=== PATIENT | female | born 1930 | race Caucasian/White ===

== ENCOUNTER 2019-07-17 19:50 | Inpatient (IN) | payer OTHER, MEDICARE ==
[2019-07-17 20:05] VITALS: BMI 19.2
--- NOTE | 2019-07-17 20:28 | PDOC ---
History of Present Illness - General Chief Complaint: Syncope/Near Syncope Stated Complaint: SYNCOPE Time Seen by Provider: 07/17/19 20:14 History Source: Patient Exam Limitations: No Limitations - History of Present Illness Initial Comments: 07/17/19 20:27 Viky Coffman is an 88F with PMH cognitive impairment/dementia, urinary incontinence, anxiety, hyponatremia, presenting with syncope. Patient was otherwise healthy today, when she suddenly passed out while sitting. Per EMS report, patient did not fall or hit head, woke up and felt fine. Patient does not remember event, denies any chest pain, SOB, palpitations , dizziness, vision changes, fever, chills, nausea, vomiting, abdominal pain, urinary symptoms, or any other prodrome or postdrome symptoms. No other cardiac history or prior events. Eating and drinking without issues. Taking all mediations as prescribed. NKDA Past History - Past Medical History Allergies/Adverse Reactions: Allergies Allergy/AdvReac Type Severity Reaction Status Date / Time No Known Allergies Allergy Verified 07/17/19 20:04 Home Medications: Ambulatory Orders Acetaminophen 325 mg PO Q8H PRN MDD 3gm/24hrs 07/18/19 Aripiprazole 2 mg PO HS 07/18/19 Ascorbic Acid [Vitamin C] 1,000 mg PO DAILY 07/18/19 Donepezil HCl 10 mg PO DAILY 07/18/19 Memantine HCl [Namenda Xr] 28 mg PO DAILY 07/18/19 Mirabegron [Myrbetriq] 25 mg PO DAILY 07/18/19 Sodium Chloride Tablet - 1 gm PO DAILY 07/18/19 Vitamin E - 400 unit PO DAILY 07/18/19 - Psycho Social/Smoking Cessation Hx Smoking History: Never smoked Hx Alcohol Use: No Drug/Substance Use Hx: No Review of Systems - Review of Systems Able to Perform ROS?: Yes Constitutional: No: Symptoms Reported HEENTM: No: Blurred Vision, Recent change in vision, Throat Pain, Difficulty Swallowing Respiratory: No: Cough, Shortness of Breath, Wheezing, Productive cough Cardiac (ROS): Yes: Syncope. No: Chest Pain, Irregular Heart Rate, Lightheadedness, Palpitations ABD/GI: No: Constipated, Diarrhea, Nausea, Poor Appetite, Poor Fluid Intake, Vomiting : No: Burning, Dysuria, Discharge, Frequency, Flank Pain, Hematuria, Incontinence Musculoskeletal: No: Symptoms Reported Integumentary: No: Symptoms Reported Neurological: No: Symptoms reported Endocrine: No: Symptoms Reported Hematologic/Lymphatic: No: Symptoms Reported All Other Systems: Reviewed and Negative *Physical Exam - Vital Signs Last Vital Signs Temp Pulse Resp BP Pulse Ox 98.1 F 66 18 107/56 L 97 07/17/19 19:55 07/17/19 19:55 07/17/19 19:55 07/17/19 19:55 07/17/19 19:55 - Physical Exam General Appearance: Yes: Nourished, Appropriately Dressed. No: Apparent Distress HEENT: positive: EOMI, JAYLAN, Normal Voice, Symmetrical, Pharynx Normal. negative: Scleral Icterus (R), Scleral Icterus (L), Pharyngeal Erythema, Tonsillar Exudate, Tonsillar Erythema Neck: positive: Trachea midline, Normal Thyroid, Supple. negative: Tender, Rigid, Lymphadenopathy (R), Lymphadenopathy (L) Respiratory/Chest: positive: Lungs Clear, Normal Breath Sounds. negative: Chest Tender, Respiratory Distress, Accessory Muscle Use, Crackles, Rales, Rhonchi, Stridor, Wheezing Cardiovascular: positive: Regular Rhythm, Regular Rate. negative: Murmur Gastrointestinal/Abdominal: positive: Normal Bowel Sounds, Flat, Soft. negative : Tender, Organomegaly, Distended, Guarding, Rebound Musculoskeletal: positive: Normal Inspection. negative: CVA Tenderness, Vertebral Tenderness Extremity: positive: Normal Capillary Refill, Normal Inspection, Normal Range of Motion, Pelvis Stable. negative: Tender, Pedal Edema, Swelling Integumentary: positive: Normal Color, Dry, Warm Neurologic: positive: technical assistant II-XII NML intact, Alert, Normal Mood/Affect, Normal Response, Motor Strength 5/5, Finger to Nose (normal). negative: Fully Oriented (Oriented to self, time, date, but says Tracy when asked where she is, asked twice with same answer.), Numbness, Sensory Deficit ED Treatment Course - LABORATORY CBC & Chemistry Diagram: 07/17/19 21:15 07/17/19 21:15 Medical Decision Making - Medical Decision Making 07/17/19 21:26 Patient presents with one episode of syncope without associated chest pain, SOB , palpitations, or any prodromal sx. Patient says she feels totally fine in ED. No report of head trauma but patient cannot recall and has dementia. VS stable, unremarkable physical exam, no neuro deficits. At baseline mental status per daughter at bedside, has mild dementia but is A/Ox2. Will evaluate for infectious, hematologic, cardiac, pulmonary, causes of syncope. - CMP/CBC for eval anemia, lytes, infection - CP/ECG/CXR for eval cardiopulmonary disease - CT head/s-cpine for eval fall - orthostatic VS for eval positional hypotension ECG shows NSR with HR 68, QRS 86, QTc 440 without RAS/D, TWI in III. Labs notable: - CMP WNL - CBC WNL - CP WNL CXR grossly normal on prelim read. 07/17/19 23:38 Contact information Giuliana (daughter): [phone] Campos (son-in-law): [phone] 07/18/19 00:[address] head no pathology CT cervical spine no pathology Will admit for tele/obs for syncope, cardiac evaluation. 4 hour trop ordered. 07/18/19 02:55 Discussed case to admitting team, good for tele/obs admission under Dr. Mcdonough. Discharge - Discharge Information Problems reviewed: Yes Clinical Impression/Diagnosis: Syncope Qualifiers: Syncope type: unspecified Qualified Code(s): R55 - Syncope and collapse Condition: Fair - Admission Yes - Follow up/Referral - Patient Discharge Instructions - Post Discharge Activity
--- NOTE | 2019-07-17 20:46 | PDOC ---
Attending Attestation - Resident Resident Name: César Calzada - ED Attending Attestation I have performed the following: I have examined & evaluated the patient, The case was reviewed & discussed with the resident, I agree w/resident's findings & plan - HPI HPI: 07/18/19 00:43 see resident hpi - Physicial Exam PE: 07/18/19 00:44 see resident exam - Medical Decision Making 07/18/19 00:44 88-year-old female status post syncopal episode EKG is unremarkable Troponin within normal limits CT scan of the head and cervical spine show no acute abnormality We will admit to medical service for observation due to age
[2019-07-17 21:34] LABS: BASO % 0.9 % (0-2.0); EOS % 2.9 % (0-4.5); HEMATOCRIT 39.2 % (32.4-45.2); LYMPH % 8.2 % (8-40); MCH 32.6 pg (25.7-33.7); MCHC 33.1 g/dl (32.0-36.0); MEAN CELL VOLUME 98.6 fl (80-96); MEAN PLT VOLUME 8.7 fl (7.5-11.1); MONO % 7.3 % (3.8-10.2); NEUT % 80.7 % (42.8-82.8); PLATELET COUNT 203 K/MM3 (134-434); RBC 3.97 M/mm3 (3.60-5.2); RDW 14.2 % (11.6-15.6); WHITE BLOOD COUNT 8.1 K/mm3 (4.0-10.0)
[2019-07-17 21:59] LABS: INR 0.97 (0.83-1.09); PROTHROMBIN TIME (PATIENT) 11.5 SEC (9.7-13.0)
[2019-07-17 22:02] LABS: ACTIVATED PTT 29.5 SECONDS (25.2-36.5)
[2019-07-17 22:07] LABS: ALBUMIN 3.4 g/dl (3.4-5.0); BILIRUBIN,TOTAL 0.4 mg/dL (0.2-1); BLOOD UREA NITROGEN 31.8 mg/dL (7-18); CALCIUM 9.1 mg/dL (8.5-10.1); CREATININE 1.2 mg/dL (0.55-1.3); POTASSIUM 4.6 mmol/L (3.5-5.1); TOT PROT 6.6 g/dl (6.4-8.2)
--- NOTE | 2019-07-18 02:11 | PN ---
Teaching Attending Note Name of Resident: Filomena Soni ATTENDING PHYSICIAN STATEMENT I saw and evaluated the patient. I reviewed the resident's note and discussed the case with the resident. I agree with the resident's findings and plan as documented. SUBJECTIVE: Patient is an 88 year old woman with PMH of Dementia/Cognitive, Urinary incontinence, Anxiety and Hyponatremia, presenting with syncope. Patient was otherwise healthy today, when she suddenly passed out while sitting. Per EMS report, patient did not fall or hit head, woke up and felt fine. Patient does not remember event. Patient denies chest pain, SOB, palpitations, dizziness, vision changes, fever, chills, nausea, vomiting, abdominal pain, urinary symptoms, or any other prodrome or postdrome symptoms. No other cardiac history or prior events. Eating and drinking without issues. Taking all mediations as prescribed. Denies alcohol, tobacco or illicit drug use. No sick contacts or recent travels. OBJECTIVE: Alert and not orthostatic Vital Signs Period Temp Pulse Resp BP Sys/Vázquez Pulse Ox Last 24 Hr 98.1 F 66 18 107/56 97 HEENT: No Jaundice, eye redness or discharge, PERRLA, EOMI. Normocephalic, atraumatic. External ears are normal and hearing is grossly intact. No nasal discharge. Neck: Supple, nontender. No palpable adenopathy or thyromegaly. No JVD Chest: Good effort. Clear to auscultation and percussion. Heart: Regular. No S3, rub or murmur Abdomen: Not distended, soft, nontender and no HSM. No rebound or guarding. Normal bowel sounds. Ext: Peripheral pulses intact. No leg edema. Skin: Warm and dry. No petechiae, rash or ecchymosis. Neuro: Alert. Oriented to person and time. CN 2-12 grossly intact. Sensation grossly intact in all four extremities and DTR are symmetric. Psych: Appropriate mood and affect. Good insight. Abnormal Lab Results 07/17/19 07/17/19 21:15 21:15 MCV 98.6 H Anion Gap 6 L BUN 31.8 H ASSESSMENT AND PLAN: 1. Syncope - Etiology unclear. Elevated BUN suggests dehydration may be a contributing factor. Also drug side effect may be a contributing factor - she is on Namenda, Aripiprazole, Donepezil and Mirabegron - all of which will be stopped for now. Will also stop Vitamin C and Vitamin E. No acute abnormality on head or C-spine CT. CXR shows bilateral increased interstitial markings. Will hydrate her gently with IV NS, get urinalysis, urine toxicology, monitor on telemetry, get ECHO, carotid doppler and brain MRI. Implement fall precautions and consult PT and Neurology. Will continue comprehensive care for all of patients comorbid conditions. 2. DVT prophylaxis - Lovenox 40 mg SQ q 24 hours. 3. Advance directives - Full code
--- NOTE | 2019-07-18 04:55 | HP ---
CHIEF COMPLAINT: Syncopal event PCP: [facility], Dr. Croft HISTORY OF PRESENT ILLNESS: 88F PMH dementia, urinary incontinence, anxiety, hyponatremia who presents today with Syncope. Patient does not recall the events of today. Spoke with her half-way facility who only had nursing report from hand off in the evening. Patient was noted to be at afternoon activity today and a staff member noticed she had loss of conciousness. No note was made of if she was initially standing but patient was found in a chair. She had no witnessed fall, no trauma. No timeframe for how long she was out was given. Patient did not have any urinary or fecal incontinence, nor any seizure like movement. Currently she states that she is in [place], [place], and [place]. She denies any chest pain, shortness of breath, headache, dizziness, lightheadedness, abdominal pain, nausea, vomiting, diarrhea, dysuria or hematuria. ER course was notable for: (1) Head CT was completed: Negative (2) CT C-Spine was negative (3) Labs showed BUN of 31.8 Recent Travel: None PAST MEDICAL HISTORY: dementia, urinary incontinence, anxiety, hyponatremia FAMILY MEDICAL HISTORY: Denies PAST SURGICAL HISTORY: denies Social History: Smoking:Denies Alcohol:denies Drugs: Denies Allergies No Known Allergies Allergy (Verified 07/17/19 20:04) HOME MEDICATIONS: Home Medications Medication Instructions Recorded Acetaminophen 325 mg PO Q8H PRN MDD 3gm/24hrs 07/18/19 Aripiprazole 2 mg PO HS 07/18/19 Ascorbic Acid [Vitamin C] 1,000 mg PO DAILY 07/18/19 Donepezil HCl 10 mg PO DAILY 07/18/19 Memantine HCl [Namenda Xr] 28 mg PO DAILY 07/18/19 Mirabegron [Myrbetriq] 25 mg PO DAILY 07/18/19 Sodium Chloride Tablet - 1 gm PO DAILY 07/18/19 Vitamin E - 400 unit PO DAILY 07/18/19 REVIEW OF SYSTEMS CONSTITUTIONAL: Absent: fever, chills, diaphoresis, generalized weakness, malaise, loss of appetite, weight change HEENT: Absent: rhinorrhea, nasal congestion, throat pain, throat swelling, difficulty swallowing, mouth swelling, ear pain, eye pain, visual changes CARDIOVASCULAR: Absent: chest pain, syncope, palpitations, irregular heart rate, lightheadedness , peripheral edema RESPIRATORY: Absent: cough, shortness of breath, dyspnea with exertion, orthopnea, wheezing, stridor, hemoptysis GASTROINTESTINAL: Absent: abdominal pain, abdominal distension, nausea, vomiting, diarrhea, constipation, melena, hematochezia GENITOURINARY: Absent: dysuria, frequency, urgency, hesitancy, hematuria, flank pain, genital pain MUSCULOSKELETAL: Absent: myalgia, arthralgia, joint swelling, back pain, neck pain SKIN: Absent: rash, itching, pallor HEMATOLOGIC/IMMUNOLOGIC: Absent: easy bleeding, easy bruising, lymphadenopathy, frequent infections ENDOCRINE: Absent: unexplained weight gain, unexplained weight loss, heat intolerance, cold intolerance NEUROLOGIC: Absent: headache, focal weakness or paresthesias, dizziness, unsteady gait, seizure, mental status changes, bladder or bowel incontinence PSYCHIATRIC: Absent: anxiety, depression, suicidal or homicidal ideation, hallucinations. PHYSICAL EXAMINATION Vital Signs - 24 hr 07/17/19 19:55 Temperature 98.1 F Pulse Rate 66 Respiratory 18 Rate Blood Pressure 107/56 L O2 Sat by Pulse 97 Oximetry (%) GENERAL: Awake, alert, oriented to self and time. Not oriented to place. Resting comfortably. HEAD: Normal with no signs of trauma. EYES: Pupils equal, round and reactive to light, extraocular movements intact, sclera anicteric, conjunctiva clear. No lid lag. EARS, NOSE, THROAT: Ears normal, nares patent, oropharynx clear without exudates. Dry oropharynx. NECK: Normal range of motion, supple without lymphadenopathy, JVD, or masses. LUNGS: Breath sounds equal, clear to auscultation bilaterally. No wheezes, and no crackles. No accessory muscle use. HEART: Regular rate and rhythm, normal S1 and S2 without murmur, rub or gallop. ABDOMEN: Soft, nontender, not distended, normoactive bowel sounds, no guarding, no rebound, no masses. No hepatomegaly or splenomegaly. MUSCULOSKELETAL: Normal range of motion at all joints. No bony deformities or tenderness. No CVA tenderness. UPPER EXTREMITIES: 2+ pulses, warm, well-perfused. No cyanosis. No clubbing. No peripheral edema. LOWER EXTREMITIES: 2+ pulses, warm, well-perfused. No calf tenderness. No peripheral edema. NEUROLOGICAL: Cranial nerves II-XII intact. Normal speech. PSYCHIATRIC: Cooperative. Good eye contact. Appropriate mood and affect. SKIN: Warm, dry, normal turgor, no rashes or lesions noted, normal capillary refill. Laboratory Results - last 24 hr 07/17/19 07/17/19 07/17/19 21:15 21:15 21:15 WBC 8.1 RBC 3.97 Hgb 13.0 Hct 39.2 MCV 98.6 H MCH 32.6 MCHC 33.1 RDW 14.2 Plt Count 203 MPV 8.7 Absolute Neuts (auto) 6.6 Neutrophils % 80.7 Lymphocytes % 8.2 Monocytes % 7.3 Eosinophils % 2.9 Basophils % 0.9 Nucleated RBC % 0 PT with INR INR PTT (Actin FS) Sodium 138 Potassium 4.6 Chloride 101 Carbon Dioxide 31 Anion Gap 6 L BUN 31.8 H Creatinine 1.2 Est GFR (CKD-EPI)AfAm 46.73 Est GFR (CKD-EPI)NonAf 40.32 Random Glucose 92 Calcium 9.1 Total Bilirubin 0.4 AST 19 ALT 17 Alkaline Phosphatase 97 Creatine Kinase 67 Troponin I < 0.02 Total Protein 6.6 Albumin 3.4 07/17/19 21:15 WBC RBC Hgb Hct MCV MCH MCHC RDW Plt Count MPV Absolute Neuts (auto) Neutrophils % Lymphocytes % Monocytes % Eosinophils % Basophils % Nucleated RBC % PT with INR 11.50 INR 0.97 PTT (Actin FS) 29.5 Sodium Potassium Chloride Carbon Dioxide Anion Gap BUN Creatinine Est GFR (CKD-EPI)AfAm Est GFR (CKD-EPI)NonAf Random Glucose Calcium Total Bilirubin AST ALT Alkaline Phosphatase Creatine Kinase Troponin I Total Protein Albumin ASSESSMENT/PLAN: 88F PMH dementia, urinary incontinence, anxiety, hyponatremia who presents today with Syncope. 1) Syncope - Unknown eitology - Call Nursing facility in AM, and speak with day staff that witnessed events - Head CT negative - Echo ordered to rule out cardiogenic cause. - Orthostatic vitals done: BP 136/54 HR 74 while supine. BP: 120/61 with HR 96 standing. Negative. - NS @ 42 - Holding home medications of donepezil, aripiprazole, mirabegron, and memantine as side effects can lead to orthostatic hypotension which can be a precipitating factor syncopal episode - U/A ordered, U tox ordered - Continous cardiac monitoring - Echo - Brain MRI - Carotid doppler 2) Elevated BUN - Likely 2/2 to dehydration - Encourage oral hydration and gentle IV hydration - NS @ 42 ml/hr DVT: Heparin SQ TID F: NS @ 42 ml/hr E: Monitor BMP N: Regular diet Dispo: Tele observation Visit type - Emergency Visit Emergency Visit: Yes ED Registration Date: 07/17/19 Care time: The patient presented to the Emergency Department on the above date and was hospitalized for further evaluation of their emergent condition. - New Patient This patient is new to me today: Yes Date on this admission: 07/18/19 - Critical Care Critical Care patient: No ATTENDING PHYSICIAN STATEMENT I saw and evaluated the patient. I reviewed the resident's note and discussed the case with the resident. I agree with the resident's findings and plan as documented. SUBJECTIVE: OBJECTIVE: ASSESSMENT AND PLAN:
[2019-07-18] MEDS: SODIUM CHLORIDE 1,000 ML IV SCH (05:00)
[2019-07-18] MEDS ORDERED: HEPARIN NA (PORCINE) 5,000 UNITS/ML 1ML VIAL ONE (05:45)
[2019-07-18] MEDS ORDERED: HEPARIN NA (PORCINE) 5,000 UNITS/ML 1ML VIAL SQ SCH (06:00)
[2019-07-18 06:05] LABS: BASO % 1.2 % (0-2.0); HEMATOCRIT 33.1 % (32.4-45.2); HEMOGLOBIN 11.3 GM/dL (10.7-15.3); LYMPH % 18.4 % (8-40); MCH 33.1 pg (25.7-33.7); MCHC 34.2 g/dl (32.0-36.0); MEAN PLT VOLUME 8.6 fl (7.5-11.1); MONO % 10.3 % (3.8-10.2); NEUT % 65.1 % (42.8-82.8); PLATELET COUNT 176 K/MM3 (134-434); RBC 3.41 M/mm3 (3.60-5.2); WHITE BLOOD COUNT 4.8 K/mm3 (4.0-10.0)
[2019-07-18 06:44] LABS: ALBUMIN 2.9 g/dl (3.4-5.0); BILIRUBIN,TOTAL 0.6 mg/dL (0.2-1); BLOOD UREA NITROGEN 26.9 mg/dL (7-18); CALCIUM 8.7 mg/dL (8.5-10.1); CREATININE 0.8 mg/dL (0.55-1.3); POTASSIUM 3.9 mmol/L (3.5-5.1); TOT PROT 5.5 g/dl (6.4-8.2)
[2019-07-18] MEDS ORDERED: ENOXAPARIN NA (PORCINE) 40 MG/0.4 ML DISP.SYRIN SQ SCH (10:00)
--- NOTE | 2019-07-18 10:33 | EKG ---
Test Reason : Blood Pressure : / mmHG Vent. Rate : 068 BPM Atrial Rate : 068 BPM P-R Int : 156 ms QRS Dur : 086 ms QT Int : 414 ms P-R-T Axes : 050 -22 003 degrees QTc Int : 440 ms NORMAL SINUS RHYTHM NORMAL ECG NO PREVIOUS ECGS AVAILABLE Confirmed by Juanito Fulton MD ([id number]) on 07/18/2019 10:33:19 AM Referred By: Confirmed By:Juanito Fulton MD
--- NOTE | 2019-07-18 13:06 | ECHO ---
Version: 1 Name: JOAVNNA MANN Exam: Adult Echocardiogram Study Date: 07/18/2019, 9:17 AM Age: 88 Years MMode/2D Measurements & Calculations IVSd: 1.27 cm LVIDs: 2.23 cm LVIDd: 3.7 cm LVPWd: 1.04 cm ACS: 1.70 cm Ao root diam: 3.0 cm LVOT diam: 1.99 cm LA dimension: 2.9 cm Doppler Measurements & Calculations MV E max viktor: 88.8 cm/sec Med E/e': 14.2 MV A max viktor: 114.5 cm/sec Med Peak E' Viktor: 6.2 cm/sec MV E/A: 0.78 Lat E/e': 15.4 Lat Peak E' Viktor: 5.8 cm/sec Ao max P.5 mmHg ERMA(I,D): 2.7 cm Ao mean P.7 mmHg LV V1 mean: 70.5 cm/sec Ao V2 max: 127.6 cm/sec LV V1 mean P.34 mmHg AI P1/2t: 706.3 msec PI end-d viktor: 65.2 cm/sec TR max viktor: 250.7 cm/sec TR max P.2 mmHg Left Ventricle The left ventricle is normal in size. There is mild concentric left ventricular hypertrophy. Left ve ntricular systolic function is normal. Ejection Fraction = 70%. The transmitral spectral Doppler flow pattern is suggestive of impaired LV relaxation. Right Ventricle The right ventricle is moderately dilated. The right ventricular systolic function is normal. Atria The left atrial size is normal. The right atrium is moderately dilated. Mitral Valve The mitral valve is grossly normal. There is mild mitral regurgitation. Tricuspid Valve The tricuspid valve is not well visualized, but is grossly normal. There is mild to moderate tricusp id regurgitation. Aortic Valve The aortic valve is normal in structure and function. Pulmonic Valve The pulmonic valve is not well visualized. Great Vessels The aortic root is normal size. Normal aortic arch, descending and ascending aorta. Pericardium/Pleura There is no pericardial effusion. Tech Comments TDS. Very thin. Suboptimal apical views. Summary Statements The left ventricle is normal in size. There is mild concentric left ventricular hypertrophy. Left ventricular systolic function is normal. Ejection Fraction = 70%. The transmitral spectral Doppler flow pattern is suggestive of impaired LV relaxation. The right ventricle is moderately dilated. The right ventricular systolic function is normal. The left atrial size is normal. The right atrium is moderately dilated. The mitral valve is grossly normal. There is mild mitral regurgitation. The tricuspid valve is not well visualized, but is grossly normal. There is mild to moderate tricuspid regurgitation. The aortic valve is normal in structure and function. The pulmonic valve is not well visualized. The aortic root is normal size. Normal aortic arch, descending and ascending aorta There is no pericardial effusion. Castro Jara 07/18/2019, 1:05 PM Ordering Physician: Srinivas José Referring Physician: SRINIVAS JOSÉ Performed By: Shefali Bernstein
--- NOTE | 2019-07-18 13:31 | CON.NEURO ---
Consult Consult Specialty:: Carol Ann Referred by:: Neurology - History of Present Illness History of Present Illness: 88 With multiple medical problem including being a prison, osteoarthritis , dementia, hypertension patient was at her usual status of health until yesterday she had a syncopal event patient herself is not able to give me any history patient was seen in the emergency room. Patient had a CAT scan of the head which revealed evidence of mild atrophy with mild ischemic lordosis with no evidence of acute pathology. - History Source History Provided By: Medical Record - Alcohol/Substance Use Hx Alcohol Use: No - Smoking History Smoking history: Never smoked Home Medications - Allergies Allergies/Adverse Reactions: Allergies Allergy/AdvReac Type Severity Reaction Status Date / Time No Known Allergies Allergy Verified 07/17/19 20:04 - Home Medications Home Medications: Ambulatory Orders Acetaminophen 325 mg PO Q8H PRN MDD 3gm/24hrs 07/18/19 Aripiprazole 2 mg PO HS 07/18/19 Ascorbic Acid [Vitamin C] 1,000 mg PO DAILY 07/18/19 Donepezil HCl 10 mg PO DAILY 07/18/19 Memantine HCl [Namenda Xr] 28 mg PO DAILY 07/18/19 Mirabegron [Myrbetriq] 25 mg PO DAILY 07/18/19 Sodium Chloride Tablet - 1 gm PO DAILY 07/18/19 Vitamin E - 400 unit PO DAILY 07/18/19 Family Medical History Family History: Unable to Obtain Review of Systems - Review of Systems Neurological: reports: Dizziness, Headache, Incoordination, Parasthesia Physical Exam-Neuro Vital Signs: Vital Signs Temperature 98.6 F 07/18/19 13:21 Pulse Rate 82 07/18/19 13:21 Respiratory Rate 19 07/18/19 13:21 Blood Pressure 119/59 L 07/18/19 13:21 O2 Sat by Pulse Oximetry (%) 98 07/18/19 13:21 Constitutional: Yes: Well Nourished Neck: Yes: WNL Cardiovascular: Yes: WNL Labs: CBC, BMP 07/18/19 05:40 07/18/19 05:40 INR, PTT INR 0.97 (0.83-1.09) 07/17/19 21:15 - Neuro Exam Level Of Consciousness: Yes: Oriented to Person, Oriented to Place, Oriented to Time Eyes: Yes: PERRLA Speech: WNL Dominant Hand: Right Cranial Nerves II-XII Intact: Yes Gag: Present Response to light touch: Abnormal Response to pain prick: Abnormal Response to temperature: Abnormal Motor Strength: 3/5: Left Arm, Right Arm, Left Leg, Right Leg Gait: Deferred Imaging - Results Cat Scan: Image Reviewed Problem List - Problems (1) Syncope Code(s): R55 - SYNCOPE AND COLLAPSE Qualifiers: Syncope type: unspecified Qualified Code(s): R55 - Syncope and collapse Assessment/Plan 1. Admitted to telemetry. 2. Holter monitor. 3. Stop the Aricept. 4. Check orthostasis every shift. 5. Fall precautions. 6. Blood work for dementia including B12, RPR, thyroid function Emad Amandeep Maharaj M.D., MSc [facility] [address] [place] [id number] Office
[2019-07-18] MEDS: HEPARIN NA (PORCINE) 5,000 UNITS/ML 1ML VIAL SQ SCH ×2 (15:25→21:43)
[2019-07-18 21:29] LABS: EPI CELLS 2.7 /HPF (0-5/HPF); HYALINE CASTS 2 /lpf (0-8); URINE APPEARANCE CLOUDY; URINE BACTERIA 62.1 /hpf (NEGATIVE); URINE BILIRUBIN NEGATIVE (NEGATIVE); URINE COLOR YELLOW; URINE GLUCOSE (UA) NEGATIVE (NEGATIVE); URINE KETONE NEGATIVE (NEGATIVE); URINE LEUK ESTERASE 3+ (NEGATIVE); URINE NITRITE NEGATIVE (NEGATIVE); URINE PROTEIN NEGATIVE (NEGATIVE); URINE RBC 6 /hpf (0-4); URINE UROBILINOGEN 0.2 mg/dL (0.2-1.0); URINE WBC 44 /hpf (0-5)
[2019-07-19] MEDS: HEPARIN NA (PORCINE) 5,000 UNITS/ML 1ML VIAL SQ SCH (05:42)
[2019-07-19] MEDS: SODIUM CHLORIDE 1,000 ML IV SCH (05:42)
[2019-07-19] MEDS ORDERED: LORazepam 2 MG/ML SDV VIAL IVPUSH ONE (07:45)
--- NOTE | 2019-07-19 08:19 | PN ---
Progress Note, Physician Chief Complaint: Patient seen and examined at the bedside in ICU, appears to be very anxious this morning. History of Present Illness: This 88 yr old w/f with PMH of cognitive dysfunction/dementia, urinary incontinence, hyponatremia, and anxiety admitted via ER with an acute episode of syncope. While sitting in chair, patient passed out. She doesn't remember the event. Denies to chest pain, dizziness, shortness of breath, headache, or abdominal pain. - Current Medication List Current Medications: Active Medications Heparin Sodium (Porcine) (Heparin -) 5,000 unit SQ TID [facility] Last Admin: 07/19/19 05:42 Dose: Not Given Dextrose/Sodium Chloride (D5-1/2ns -) 1,000 mls @ 42 mls/hr IV ASDIR [facility] - Objective Vital Signs: Vital Signs Temperature 97.8 F 07/19/19 05:00 Pulse Rate 61 07/19/19 07:10 Respiratory Rate 20 07/19/19 07:10 Blood Pressure 179/69 H 07/19/19 07:10 O2 Sat by Pulse Oximetry (%) 97 07/19/19 00:58 Constitutional: Yes: Well Nourished, Anxious, Mild Distress Eyes: Yes: Conjunctiva Clear, EOM Intact HENT: Yes: Atraumatic, Normocephalic Neck: Yes: Supple, Trachea Midline Cardiovascular: Yes: Regular Rate and Rhythm Respiratory: Yes: Regular, CTA Bilaterally Gastrointestinal: Yes: Normal Bowel Sounds, Soft ...Rectal Exam: Yes: Deferred Genitourinary: Yes: Incontinence Breast(s): Yes: WNL Musculoskeletal: Yes: Muscle Weakness Edema: No Peripheral Pulses WNL: Yes Peripheral Pulses: Left Radial: 2+, Right Radial: 2+ Integumentary: Yes: WNL Neurological: Yes: Alert, Unsteady Gait, Weakness ...Motor Strength: LLE (muscle weakness), RLE (muscle weakness) Psychiatric: Yes: Alert, Agitated Labs: CBC, BMP 07/18/19 05:40 07/18/19 05:40 INR, PTT INR 0.97 (0.83-1.09) 07/17/19 21:15 - ....Imaging Other: Report Reviewed (Lab data reviewed) Problem List - Problems (1) Tricuspid regurgitation Code(s): I07.1 - RHEUMATIC TRICUSPID INSUFFICIENCY (2) Atrial dilatation, right Code(s): I51.7 - CARDIOMEGALY (3) Right ventricular dilation Code(s): I51.7 - CARDIOMEGALY (4) Syncope Code(s): R55 - SYNCOPE AND COLLAPSE Qualifiers: Syncope type: unspecified Qualified Code(s): R55 - Syncope and collapse (5) Hypertension Code(s): I10 - ESSENTIAL (PRIMARY) HYPERTENSION (6) Anxiety Code(s): F41.9 - ANXIETY DISORDER, UNSPECIFIED Assessment/Plan Assessment/plan: acute syncope, acute anxiety, acute uncontrolled hypertension, acute generalized muscle weakness, acute unsteadiness on feet; IV fluids, IV Lorazepam, oral Diovan, DVT prophylaxis, physical therapy, fall precautions.
[2019-07-19] MEDS ORDERED: VALSARTAN 40 MG TABLET (FP) PO ONE (09:00)
[2019-07-19] MEDS: DEXTROSE 5%-0.45% SALINE 1,000 ML IV SCH (09:28)
[2019-07-19] MEDS: ENOXAPARIN NA (PORCINE) 40 MG/0.4 ML DISP.SYRIN SQ SCH (09:31)
[2019-07-19] MEDS ORDERED: DONEPEZIL HCL 10 MG TABLET (FP) PO SCH (10:00)
[2019-07-19] MEDS ORDERED: MEMANTINE HCL 10 MG TABLET (FP) PO SCH (10:00)
[2019-07-19] MEDS: OXYBUTYNIN CHLORIDE 5 MG TABLET PO SCH (10:07)
[2019-07-19] MEDS: ARIPiprazole 2 MG TABLET PO SCH (21:05)
--- NOTE | 2019-07-20 09:06 | PN ---
Progress Note, Physician Chief Complaint: Patient seen and examined at the bedside in ICU, no acute events from last night, no labored breathing, no chest pain. History of Present Illness: This 88 yr old w/f with PMH of cognitive dysfunction/dementia, hyponatremia, anxiety, and urinary incontinence admitted via ER with an acute bout of syncope and collapse, and an acute concussion with LOC. - Current Medication List Current Medications: Active Medications Aripiprazole (Abilify) 2 mg PO DAILY@2100 [facility] Last Admin: 07/19/19 21:05 Dose: 2 mg Documented by: Enoxaparin Sodium (Lovenox -) 40 mg SQ DAILY [facility] Last Admin: 07/19/19 09:31 Dose: 40 mg Documented by: Dextrose/Sodium Chloride (D5-1/2ns -) 1,000 mls @ 42 mls/hr IV ASDIR [facility] Last Admin: 07/19/19 09:28 Dose: 42 mls/hr Documented by: Oxybutynin Chloride (Ditropan -) 5 mg PO DAILY [facility] Last Admin: 07/19/19 10:07 Dose: 5 mg Documented by: - Objective Vital Signs: Vital Signs Temperature 98.2 F 07/20/19 01:00 Pulse Rate 71 07/20/19 01:00 Respiratory Rate 20 07/20/19 01:00 Blood Pressure 148/62 07/20/19 01:00 O2 Sat by Pulse Oximetry (%) 97 07/19/19 22:00 Constitutional: Yes: Well Nourished, No Distress, Calm Eyes: Yes: Conjunctiva Clear, EOM Intact HENT: Yes: Atraumatic, Normocephalic Neck: Yes: Supple, Trachea Midline Cardiovascular: Yes: Regular Rate and Rhythm Respiratory: Yes: Regular, CTA Bilaterally Gastrointestinal: Yes: Normal Bowel Sounds, Soft ...Rectal Exam: Yes: Deferred Genitourinary: Yes: Incontinence Breast(s): Yes: WNL Musculoskeletal: Yes: Muscle Weakness Extremities: Yes: Other (generalized muscle weakness) Edema: No Peripheral Pulses WNL: Yes Peripheral Pulses: Left Radial: 2+, Right Radial: 2+ Integumentary: Yes: WNL Neurological: Yes: Unsteady Gait, Weakness ...Motor Strength: LLE (muscle weakness), RLE (muscle weakness) Psychiatric: Yes: Alert, Oriented Labs: CBC, BMP 07/18/19 05:40 07/18/19 05:40 INR, PTT INR 0.97 (0.83-1.09) 07/17/19 21:15 Problem List - Problems (1) Tricuspid regurgitation Code(s): I07.1 - RHEUMATIC TRICUSPID INSUFFICIENCY (2) Atrial dilatation, right Code(s): I51.7 - CARDIOMEGALY (3) Right ventricular dilation Code(s): I51.7 - CARDIOMEGALY (4) Syncope Code(s): R55 - SYNCOPE AND COLLAPSE Qualifiers: Syncope type: unspecified Qualified Code(s): R55 - Syncope and collapse (5) Hypertension Code(s): I10 - ESSENTIAL (PRIMARY) HYPERTENSION (6) Anxiety Code(s): F41.9 - ANXIETY DISORDER, UNSPECIFIED Assessment/Plan Assessment/plan: acute syncope and collapse, acute concussion with LOC, acute anxiety, acute generalized muscle weakness, acute unsteadiness on feet, mild to moderate TR, moderately dilated RV and RA; IV fluids, DVT prophylaxis, physical therapy, fall precautions, consult to Cardiology pending.
[2019-07-20] MEDS: DEXTROSE 5%-0.45% SALINE 1,000 ML IV SCH (09:07)
[2019-07-20] MEDS: ENOXAPARIN NA (PORCINE) 40 MG/0.4 ML DISP.SYRIN SQ SCH (09:11)
[2019-07-20] MEDS: OXYBUTYNIN CHLORIDE 5 MG TABLET PO SCH (09:11)
[2019-07-20] MEDS ORDERED: PT OWN MED DRAWER 7, Y5N ONE (20:47)
[2019-07-20] MEDS: ARIPiprazole 2 MG TABLET PO SCH (21:02)
[2019-07-21] MEDS ORDERED: PT OWN MED DRAWER 7, Y5N ONE ×4 (08:41→20:07)
[2019-07-21] MEDS: OXYBUTYNIN CHLORIDE 5 MG TABLET PO SCH (09:11)
[2019-07-21] MEDS: ENOXAPARIN NA (PORCINE) 40 MG/0.4 ML DISP.SYRIN SQ SCH (09:11)
--- NOTE | 2019-07-21 09:26 | DS ---
Physical Examination Vital Signs: Vital Signs Temperature 97.5 F L 07/21/19 06:00 Pulse Rate 62 07/21/19 06:00 Respiratory Rate 16 07/21/19 06:00 Blood Pressure 175/62 H 07/21/19 06:00 O2 Sat by Pulse Oximetry (%) 98 07/20/19 21:00 Constitutional: Yes: Well Nourished, No Distress, Calm Eyes: Yes: Conjunctiva Clear, EOM Intact HENT: Yes: Atraumatic, Normocephalic Neck: Yes: Supple, Trachea Midline Cardiovascular: Yes: Regular Rate and Rhythm Respiratory: Yes: Regular, CTA Bilaterally Gastrointestinal: Yes: Normal Bowel Sounds, Soft ...Rectal Exam: Yes: Deferred Renal/: Yes: WNL Breast(s): Yes: WNL Musculoskeletal: Yes: Muscle Weakness Extremities: Yes: Other (generalized muscle weakness) Edema: No Peripheral Pulses WNL: Yes Integumentary: Yes: WNL Neurological: Yes: Alert, Oriented ...Motor Strength: LLE (muscle weakness), RLE (muscle weakness) Psychiatric: Yes: Alert, Oriented Labs: CBC, BMP 07/18/19 05:40 07/18/19 05:40 Discharge Summary Problems reviewed: Yes Reason For Visit: SYNCOPE Current Active Problems Anxiety (Acute) Atrial dilatation, right (Acute) Hypertension (Acute) Right ventricular dilation (Acute) Syncope (Acute) Tricuspid regurgitation (Acute) Condition: Fair - Instructions Diet, Activity, Other Instructions: Continue on home meds except for Donepezil and sodium chloride. Adequate hydration. Physical therapy. Transfer to [facility] Follow up with Dr. Palm within one week. Total time spent over 30 minutes. Referrals: Tato Guerin [Primary Care Provider] - Disposition: [facility] - Home Medications Comprehensive Discharge Medication List: Ambulatory Orders Acetaminophen 325 mg PO Q8H PRN MDD 3gm/24hrs 07/18/19 Aripiprazole 2 mg PO HS 07/18/19 Ascorbic Acid [Vitamin C] 1,000 mg PO DAILY 07/18/19 Memantine HCl [Namenda Xr] 28 mg PO DAILY 07/18/19 Mirabegron [Myrbetriq] 25 mg PO DAILY 07/18/19 Vitamin E - 400 unit PO DAILY 07/18/19 Aripiprazole [Abilify -] 2 mg PO DAILY@2100 tablet 07/21/19
--- NOTE | 2019-07-21 17:59 | PN ---
Progress Note, Physician History of Present Illness: vents noted chart reviewed Seen in the medical ICU Alert awake oriented slightly confused - Current Medication List Current Medications: Active Medications Aripiprazole (Abilify) 2 mg PO DAILY@2100 [facility] Last Admin: 07/20/19 21:02 Dose: 2 mg Documented by: - Objective Vital Signs: Vital Signs Temperature 97.3 F L 07/21/19 14:00 Pulse Rate 64 07/21/19 14:00 Respiratory Rate 16 07/21/19 14:00 Blood Pressure 138/71 07/21/19 14:00 O2 Sat by Pulse Oximetry (%) 99 07/21/19 09:00 Constitutional: Yes: Well Nourished Eyes: Yes: WNL HENT: Yes: WNL Neurological: Yes: Alert, Oriented, Babinski positive, Cran Nerves II-XII Intact ...Motor Strength: WNL Labs: CBC, BMP 07/18/19 05:40 07/18/19 05:40 INR, PTT INR 0.97 (0.83-1.09) 07/17/19 21:15 Problem List - Problems (1) Syncope Code(s): R55 - SYNCOPE AND COLLAPSE Qualifiers: Syncope type: unspecified Qualified Code(s): R55 - Syncope and collapse Assessment/Plan neurologically okay to go home. Increase by mouth fluid intake. State off the Aricept. EEG as an outpatient
[2019-07-21] MEDS: DEXTROSE 5%-0.45% SALINE 1,000 ML IV SCH (18:22)
[2019-07-21] MEDS ORDERED: LORazepam 2 MG/ML SDV VIAL IVPUSH ONE (18:30)
[2019-07-21] MEDS: ARIPiprazole 2 MG TABLET PO SCH (20:27)
[2019-07-22 09:22] VITALS: BP 147/63; PULSE 74; TEMP 97.8
--- NOTE | 2019-07-22 09:36 | DS ---
Physical Examination Vital Signs: Vital Signs Temperature 97.8 F 07/22/19 09:17 Pulse Rate 74 07/22/19 09:17 Respiratory Rate 17 07/22/19 09:17 Blood Pressure 147/63 07/22/19 09:17 O2 Sat by Pulse Oximetry (%) 99 07/22/19 08:12 Constitutional: Yes: Well Nourished, No Distress, Calm HENT: Yes: Atraumatic, Normocephalic, Epistaxis (yesterday) Neck: Yes: Supple, Trachea Midline Cardiovascular: Yes: Regular Rate and Rhythm Respiratory: Yes: Regular, CTA Bilaterally Gastrointestinal: Yes: Normal Bowel Sounds, Soft ...Rectal Exam: Yes: Deferred Renal/: Yes: WNL Breast(s): Yes: WNL Musculoskeletal: Yes: Muscle Weakness Extremities: Yes: Other (generalized muscle weakness) Edema: No Peripheral Pulses WNL: Yes Peripheral Pulses: Left Radial: 2+, Right Radial: 2+ Integumentary: Yes: WNL Neurological: Yes: Unsteady Gait, Weakness ...Motor Strength: LUE (muscle weakness), LLE (muscle weakness), RUE (muscle weakness), RLE (muscle weakness) Psychiatric: Yes: Alert Labs: CBC, BMP 07/18/19 05:40 07/18/19 05:40 Discharge Summary Problems reviewed: Yes Reason For Visit: SYNCOPE Current Active Problems Anxiety (Acute) Atrial dilatation, right (Acute) Hypertension (Acute) Right ventricular dilation (Acute) Syncope (Acute) Tricuspid regurgitation (Acute) Condition: Fair - Instructions Diet, Activity, Other Instructions: Continue on home meds except for Donepezil and sodium chloride. Adequate hydration. Physical therapy. Transfer to [facility] Follow up with Dr. Palm within one week. Total time spent over 30 minutes. Referrals: Tato Guerin [Primary Care Provider] - Disposition: [facility] - Home Medications Comprehensive Discharge Medication List: Ambulatory Orders Acetaminophen 325 mg PO Q8H PRN MDD 3gm/24hrs 07/18/19 Aripiprazole 2 mg PO HS 07/18/19 Ascorbic Acid [Vitamin C] 1,000 mg PO DAILY 07/18/19 Memantine HCl [Namenda Xr] 28 mg PO DAILY 07/18/19 Mirabegron [Myrbetriq] 25 mg PO DAILY 07/18/19 Vitamin E - 400 unit PO DAILY 07/18/19 Aripiprazole [Abilify -] 2 mg PO DAILY@2100 tablet 07/21/19
== END 2019-07-22 11:40 | DRG 312 ==
LOC: JER 19:50 → JERBED 21:27 → J2W 07-18 13:32 → OBSVTOIN 07-19 10:05
PROVIDERS: ADMIT Internal Medicine; ATTEND Family Medicine
DX: R55 Syncope and collapse (principal); F03.90 Unspecified dementia, unspecified severity, without behavioral disturbance, psychotic disturbance, mood disturbance, and anxiety; F41.9 Anxiety disorder, unspecified; E86.0 Dehydration; I36.1 Nonrheumatic tricuspid (valve) insufficiency; I51.7 Cardiomegaly
CPT/HCPCS: 36415; 70450-TC; 71045-TC-FY; 72125-TC; 80053; 81003; 82550; 82607; 84439; 84443; 84481; 84484; 85025; 85610; 85730; 86593; 87086; 93005; 93010; 93306-TC; 93880-TC; 97116-GP; 97161-GP; 99285-25; G0378; J1644; J7030